=== PATIENT | male | born 1950 | race Two or more races ===

== ENCOUNTER 2024-05-07 13:57 | Inpatient (IN) | payer MEDICAID, OTHER ==
[~2024-05-07] VITALS: Ht 167.6 cm; Wt 78.9 kg
[2024-05-07] MEDS ORDERED: LACTATED RINGERS 1,000 ML IV SCH (14:15)
[2024-05-07 15:48] LABS: BASOPHILS % 0.7 % (0.0-2.0); EOSINOPHILS % 1.7 % (0.0-5.0); HEMATOCRIT. 39.4 % (42.0-52.0); HEMOGLOBIN. 13.4 g/dL (14.0-18.0); LYMPHOCYTES % 24.3 % (20.0-50.0); MEAN CORPUSCULAR HEMOGLOBIN 31.4 pg (28.0-32.0); MEAN CORPUSCULAR HGB CONC 34.1 g/dL (31.0-37.0); MEAN CORPUSCULAR VOLUME 92.1 fL (80.0-94.0); MEAN PLATELET VOLUME 9.5 fl (7.4-10.4); MONOCYTES % 6.4 % (2.0-8.0); NEUTROPHILS % 66.9 % (40.0-76.0); PLATELET 287 x1000/uL (130-400); RED BLOOD CELL COUNT 4.28 mill/uL (4.7-6.1); RED CELL DISTRIBUTION WIDTH 12.9 % (11.6-14.6); WHITE BLOOD COUNT 8.7 x1000/uL (4.5-11.0)
[2024-05-07 15:54] LABS: CARBON DIOXIDE 22 mEq/L (21-32); CHLORIDE 105 mEq/L (98-107); POTASSIUM 3.6 mEq/L (3.5-5.1); SODIUM 137 mEq/L (136-145)
[2024-05-07 15:55] LABS: CALCIUM 9.6 mg/dL (8.7-10.4)
[2024-05-07 15:59] LABS: CREATININE 1.8 mg/dL (0.6-1.3); GLUCOSE 130 mg/dL (70-105); UREA NITROGEN BLOOD 30 mg/dL (9-23)
[2024-05-07 16:01] LABS: TROPONIN I HIGH SENSITIVITY < 4 ng/L (3.0-53)
[2024-05-07] MEDS ORDERED: IPRATROPIUM/ALBUTEROL 0.5-3(2.5)MG/3ML NEB HHN PRN (19:45)
[2024-05-07] MEDS ORDERED: CLONIDINE 0.1MG TABLET PO PRN (19:45)
[2024-05-07] MEDS ORDERED: ONDANSETRON HCL 4MG/2ML INJ IV PRN (19:45)
[2024-05-07] MEDS ORDERED: MAGNESIUM/ALUMINUM HYDROXIDE/SIMETHICONE 30ML UDC PO PRN (19:45)
[2024-05-07] MEDS ORDERED: ACETAMINOPHEN 325MG TABLET PO PRN ×2 (19:45)
[2024-05-07 20:00] VITALS: BP 145/69; RESP 18; TEMP 36.78072; O2SAT 96
[2024-05-07 21:51] LABS: CLARITY URINE CLEAR (CLEAR); COLOR URINE YELLOW (YELLOW); GLUCOSE URINE NEGATIVE (NEGATIVE); KETONES URINE NEGATIVE (NEGATIVE); LEUKOCYTE ESTERASE URINE NEGATIVE (NEGATIVE); NITRITE URINE NEGATIVE (NEGATIVE); OCCULT BLOOD URINE NEGATIVE (NEGATIVE); PH URINE 6.5 (4.5-8.0); PROTEIN URINE NEGATIVE (NEGATIVE); SPECIFIC GRAVITY URINE 1.011 (1.005-1.030); UROBILINOGEN URINE 0.2 E.U./dL (0.2-1.0)
[2024-05-07 22:09] LABS: *AMPHETAMINES SCREEN URINE NEGATIVE (NEGATIVE); *BARBITURATES SCREEN URINE NEGATIVE (NEGATIVE); *BENZODIAZEPINES SCREEN URINE NEGATIVE (NEGATIVE); *COCAINE SCREEN URINE NEGATIVE (NEGATIVE); CANNABINOID URINE SCREEN NEGATIVE (NEGATIVE); ECSTASY MDMA SCREEN URINE NEGATIVE (NEGATIVE); METHADONE URINE SCREEN NEGATIVE (NEGATIVE); OPIATES URINE SCREEN NEGATIVE (NEGATIVE); PHENCYCLIDINE URINE SCREEN NEGATIVE (NEGATIVE)
[2024-05-08] VITALS (8 sets, daily range): BP systolic 105–171; BP diastolic 60–90; PULSE 59–115; RESP 16–18; TEMP 36.33624–37.1408; O2SAT 95–100
[2024-05-08] MEDS: SODIUM CHLORIDE 0.45% 1,000 ML IV SCH (04:00)
[2024-05-08] MEDS ORDERED: AMLO10TA4 MT (05:49)
[2024-05-08] MEDS ORDERED: LOSA50TA41 MT (05:49)
[2024-05-08] MEDS ORDERED: HYDR50TA MT (05:49)
[2024-05-08] MEDS: LOSARTAN 100 MG TABLET PO SCH (08:09)
[2024-05-08] MEDS: HYDROCHLOROTHIAZIDE 25MG TABLET PO SCH (08:09)
[2024-05-08] MEDS: AMLODIPINE 10MG TABLET PO SCH (08:09)
[2024-05-08 12:12] LABS: BASOPHILS % 0.2 % (0.0-2.0); EOSINOPHILS % 0.3 % (0.0-5.0); HEMATOCRIT. 42.6 % (42.0-52.0); LYMPHOCYTES % 22.5 % (20.0-50.0); MEAN CORPUSCULAR HEMOGLOBIN 30.1 pg (28.0-32.0); MEAN CORPUSCULAR HGB CONC 32.9 g/dL (31.0-37.0); MEAN CORPUSCULAR VOLUME 91.6 fL (80.0-94.0); MEAN PLATELET VOLUME 8.9 fl (7.4-10.4); MONOCYTES % 6.5 % (2.0-8.0); NEUTROPHILS % 70.5 % (40.0-76.0); PLATELET 257 x1000/uL (130-400); RED BLOOD CELL COUNT 4.65 mill/uL (4.7-6.1); RED CELL DISTRIBUTION WIDTH 12.7 % (11.6-14.6); WHITE BLOOD COUNT 9.4 x1000/uL (4.5-11.0)
[2024-05-08 12:17] LABS: CHLORIDE 105 mEq/L (98-107); POTASSIUM 3.4 mEq/L (3.5-5.1); SODIUM 136 mEq/L (136-145)
[2024-05-08 12:18] LABS: CALCIUM 9.8 mg/dL (8.7-10.4); CARBON DIOXIDE 23 mEq/L (21-32)
[2024-05-08 12:22] LABS: IRON 135 ug/dL (65-175)
[2024-05-08 12:23] LABS: CREATININE 1.2 mg/dL (0.6-1.3); GLUCOSE 137 mg/dL (70-105); TRIGLYCERIDE 144 mg/dL (0-150); UREA NITROGEN BLOOD 21 mg/dL (9-23)
[2024-05-08 12:24] LABS: ALANINE AMINOTRANSFERASE 45 IU/L (10-49); ALBUMIN 4.7 g/dL (3.2-4.8); ASPARTATE AMINOTRANSFERASE 25 IU/L (<34); BILIRUBIN DIRECT 0.2 mg/dL (<=3.0); BILIRUBIN TOTAL 0.5 mg/dL (0.1-1.0); LDL CHOLESTEROL 93 mg/dL (5-100)
[2024-05-08 12:25] LABS: ALBUMIN 4.8 g/dL (3.2-4.8); CHOLESTEROL 144 mg/dL (<200); HDL CHOLESTEROL 35 mg/dL (>55); PHOSPHORUS 2.2 mg/dL (2.5-4.9); TOTAL IRON BINDING CAPACITY 363 ug/dl (250-425)
[2024-05-08 12:26] LABS: TROPONIN I HIGH SENSITIVITY < 4 ng/L (3.0-53)
[2024-05-08 12:27] LABS: T4 FREE 1.25 ng/dL (0.89-1.76); THYROID STIMULATING HORMONE 2.05 uIU/mL (0.55-4.78)
[2024-05-08 12:32] LABS: FERRITIN 380 ng/mL (22-322); FOLIC ACID (FOLATE) SERUM > 20.00 ng/mL (>5.38)
[2024-05-08 12:33] LABS: VITAMIN B12 SERUM 697 pg/mL (211-911)
[2024-05-08 12:36] LABS: CREATINE KINASE 77 IU/L (46-171)
[2024-05-08] MEDS ORDERED: HYDRALAZINE 20MG/ML VIAL IV PRN (13:15)
[2024-05-08] MEDS ORDERED: DORZ10DR9 EACHEYE (13:19)
[2024-05-08] MEDS ORDERED: PRED12O (13:25)
[2024-05-08] MEDS: POTASSIUM CHLORIDE 20MEQ/PACKET PO NR (14:13)
[2024-05-08] MEDS: DORZOLAM/TIMOLOL 2.23/0.68% OPHTH DROPS 10ML EACHEYE SCH (15:00)
[2024-05-09] VITALS: BP 123/68; PULSE 87; RESP 18; TEMP 36.50292; O2SAT 99
[2024-05-09 04:00] VITALS: BP 119/60; PULSE 86; RESP 18; TEMP 36.114; O2SAT 99
[2024-05-09 06:00] VITALS: BP_SYST 132; BP_SYST 136; BP_SYST 147; BP_DIAS 64; BP_DIAS 74; BP_DIAS 78; PULSE 101; PULSE 92; PULSE 93
[2024-05-09 08:00] VITALS: BP 141/79; PULSE 100; RESP 16; TEMP 36.61404; O2SAT 99
[2024-05-09 09:10] LABS: COMPLEMENT C3 170 mg/dL (82-167); COMPLEMENT C4 51 mg/dL (12-38)
[2024-05-09 10:11] LABS: ANTI-NUCLEAR ANTIBODIES DIRECT Negative (Negative)
[2024-05-09 12:00] VITALS: BP 127/70; PULSE 91; RESP 18; TEMP 36.72516; O2SAT 98
[2024-05-09] MEDS ORDERED: INFLUENZA VACCINE 05/PF 0.5 ML SYRINGE IM ONE (13:30)
[2024-05-09 13:33] VITALS: BP 127/70; PULSE 90; TEMP 97.9; O2SAT 98
[2024-05-09] MEDS: POTASSIUM-SODIUM PHOSPHATE POWDER PACKET PO NR (15:26)
== END 2024-05-09 16:15 | disposition home or self-care (01) | DRG 422 ==
LOC: ER 13:57 → EDBEDREQ 14:22 → 5WST 17:43 → EDBEDREQ 17:53 → 8WST 05-08 04:15
PROVIDERS: ADMIT Hospitalist; ATTEND Hospitalist
DX: E86.0 Dehydration (principal); N17.9 Acute kidney failure, unspecified; K76.0 Fatty (change of) liver, not elsewhere classified; I95.9 Hypotension, unspecified; D64.9 Anemia, unspecified; E87.6 Hypokalemia; I10 Essential (primary) hypertension; R73.9 Hyperglycemia, unspecified; T50.995A Adverse effect of other drugs, medicaments and biological substances, initial encounter; H40.9 Unspecified glaucoma; Z87.442 Personal history of urinary calculi; Y92.89 Other specified places as the place of occurrence of the external cause
CPT/HCPCS: 36415; 71045; 76770; 80048; 80061; 80076; 80305; 81003; 82040; 82550; 82607; 82728; 82746; 83540; 83550; 83735; 84100; 84439; 84443; 84484; 85025; 86038; 86160; 93005; 93306; 99291